=== PATIENT | male | born 1980 | race Two or more races ===

== ENCOUNTER 2019-03-01 13:50 | Emergency (ER) | payer MEDICAID ==
[~2019-03-01] VITALS: Ht 165.1 cm; Wt 87.5 kg
[2019-03-01 13:58] VITALS: BP 123/62
[2019-03-01] MEDS ORDERED: BENZOIN COMPOUND TINCT 60 ML BOTTLE ONE (15:08)
== END 2019-03-01 15:46 | disposition home or self-care (01) ==
LOC: ER 13:50
DX: S61.215D Laceration without foreign body of left ring finger without damage to nail, subsequent encounter (principal); W22.8XXD Striking against or struck by other objects, subsequent encounter